=== PATIENT | female | born 1970 | race Caucasian/White ===

== ENCOUNTER → 2017-01-13 | Outpatient (REF) | payer OTHER ==
[2017-01-13 14:22] LABS: MEAN CORPUSCULAR HEMOGLOBIN 29.9 pg (27.0-33.0); MEAN CORPUSCULAR HGB CONC 33.6 g/dl (32.0-36.5); MEAN CORPUSCULAR VOLUME 88.9 fl (80.0-96.0); RED CELL DISTRIBUTION WIDTH 12.9 % (11.5-14.5); WHITE BLOOD COUNT 8.9 K/mm3 (4.0-10.0)
[2017-01-13 15:26] LABS: ALBUMIN 3.7 GM/DL (3.2-5.2); ALBUMIN/GLOBULIN RATIO 1.37 (1.00-1.93); ALKALINE PHOSPHATASE 99 U/L (45-117); ALT/SGPT 17 U/L (12-78); ANION GAP 6 MEQ/L (8-16); AST/SGOT 11 U/L (15-37); BILIRUBIN,TOTAL 0.3 MG/DL (0.2-1.0); BLOOD UREA NITROGEN 12 MG/DL (7-18); CARBON DIOXIDE LEVEL 28 MEQ/L (21-32); CHLORIDE LEVEL 106 MEQ/L (98-107); CHOLESTEROL LEVEL 191 MG/DL (<200); GLOMERULAR FILTRATION RATE > 60.0 (>58); GLUCOSE, FASTING 89 MG/DL (70-105); POTASSIUM SERUM 4.2 MEQ/L (3.5-5.1); SODIUM LEVEL 140 MEQ/L (136-145); TOTAL PROTEIN 6.4 GM/DL (6.4-8.2); TRIGLYCERIDES LEVEL 64 MG/DL (<150)
== END ==
LOC: M LABDRWAD 13:33
PROVIDERS: ATTEND Physician Assistant
DX: Z00.00 Encounter for general adult medical examination without abnormal findings (principal); Z13.220 Encounter for screening for lipoid disorders

== ENCOUNTER → 2017-03-09 | Outpatient (REF) | payer OTHER | LOC: M SFHCWAGY 09:20 | PROVIDERS: ATTEND Nurse Practitioner Women's Health | DX: Z12.4 Encounter for screening for malignant neoplasm of cervix (principal) ==

== ENCOUNTER → 2017-03-09 | Outpatient (CLI) | payer OTHER ==
--- NOTE | 2017-03-09 10:19 | REPMRS ---
Patient History The patient states she had a clinical breast exam in 03/16 Patient is postmenopausal. Family history of prostate cancer in father, breast cancer in maternal grandmother at age 50 or over, and endometrial cancer in maternal cousin under age 50. Benign stereotactic core biopsy of the right breast, May 31, 2010. Digital Woman Screen Mammo: March 09, 2017 - Exam #: [id number] Bilateral CC and MLO view(s) were taken. Technologist: Edith Barroso, Technologist Prior study comparison: May 12, 2010, bilateral digital mammo screening bilat, performed at [facility]. FINDINGS: The breast tissue is heterogeneously dense. This may lower the sensitivity of mammography. There has been no change in the appearance of the mammogram from the prior studies. There is a moderate amount of residual fibroglandular tissue which is fairly symmetric. There is no interval development of dominant mass, areas of architectural distortion, or clustered microcalcification typical of malignancy. ASSESSMENT: BI-RADS/ACR category 1 mammogram. Negative. Recommendation Routine screening mammogram in 1 year (for women over age 40). This mammogram was interpreted with the aid of an FDA-approved computer-aided dectection system. Electronically Signed By: Link Will MD 03/09/17 [id number]
== END ==
LOC: M WHC 09:01
PROVIDERS: ATTEND Physician Assistant
DX: Z12.31 Encounter for screening mammogram for malignant neoplasm of breast (principal)

== ENCOUNTER 2018-12-05 20:33 | Emergency (ER) | payer OTHER, SELFPAY ==
[~2018-12-05] VITALS: Ht 154.9 cm; Wt 50.9 kg
[2018-12-05] MEDS ORDERED: NS 1,000 ML IV ONE (21:15)
[2018-12-05] MEDS ORDERED: ONDANSETRON 4MG/2ML VIAL (J2405) IV ONE (21:15)
[2018-12-05 21:37] LABS: BASO % 0.3 % (0.0-1.0); HEMATOCRIT 41.5 % (36.0-47.0); HEMOGLOBIN 14.6 g/dl (12.0-15.5); LYMPH # 2.1 10^3/uL (1.5-4.5); LYMPH % 17.4 % (24.0-44.0); MEAN CORPUSCULAR HEMOGLOBIN 29.3 pg (27.0-33.0); MEAN CORPUSCULAR HGB CONC 35.2 g/dl (32.0-36.5); MEAN CORPUSCULAR VOLUME 83.3 fl (80.0-96.0); MONO % 8.1 % (0.0-5.0); NEUTROPHILS # 9.1 10^3/uL (1.8-7.7); PLATELET COUNT, AUTOMATED 272 10^3/uL (150-450); RED BLOOD COUNT 4.98 10^6/uL (4.00-5.40); WHITE BLOOD COUNT 12.3 10^3/uL (4.0-10.0)
[2018-12-05] MEDS ORDERED: ISOVUE-370 76% 100ML VIAL (Q9967) As Ordered ONE (21:45)
[2018-12-05 22:24] LABS: ALT/SGPT 19 U/L (12-78); BILIRUBIN,DIRECT 0.2 MG/DL (0.0-0.2); BILIRUBIN,TOTAL 0.9 MG/DL (0.2-1.0); CK-MB VALUE MASS < 1.0 NG/ML (<3.6); CPK CREATINE PHOSPHOKINASE 139 U/L (26-192); MB/CK RELATIVE INDEX 0.72 (< OR =4); TOTAL PROTEIN 6.9 GM/DL (6.4-8.2); TROPONIN I 0.03 NG/ML (< 0.10)
--- NOTE | 2018-12-05 22:43 | REPVR ---
EXAM: CT Chest With Contrast EXAM DATE/TIME: 12/05/2018 10:15 PM CLINICAL HISTORY: 48 years old, female; Abdominal pain; Generalized; Additional info: Pulsatile mass, R/O aneurysm TECHNIQUE: Imaging protocol: Axial computed tomography images of the chest with intravenous contrast. COMPARISON: No relevant prior studies available. FINDINGS: Thyroid: Normal thyroid. Lungs: Normal. No consolidation. No masses. Pleural space: There is no evidence of pneumothorax. There is no evidence of pleural effusion. Heart: The heart is normal in size. There is no evidence of pericardial effusion. Pulmonary arteries: There is opacification of the pulmonary arteries with no evidence of pulmonary embolus. Aorta: There is opacification of the aorta which appears normal in size. The ascending aorta appears intact. Lymph nodes: There is no evidence of mediastinal lymphadenopathy. Bones/joints: Unremarkable. No acute fracture. Soft tissues: Unremarkable. IMPRESSION: Normal size thoracic aorta and appearing intact with no aneurysm. EXAM: CT Angiography Abdomen and Pelvis With Contrast EXAM DATE/TIME: 12/05/2018 10:15 PM CLINICAL HISTORY: 48 years old, female; Abdominal pain; Generalized; Additional info: Pulsatile mass, R/O aneurysm TECHNIQUE: Imaging protocol: Axial computed tomographic angiography images of the abdomen and pelvis with intravenous contrast material. 3D rendering: MIP reconstructed images were created and reviewed. Radiation optimization: All CT scans at this facility use at least one of these dose optimization techniques: automated exposure control; mA and/or kV adjustment per patient size (includes targeted exams where dose is matched to clinical indication); or iterative reconstruction. Contrast material: ISOVUE 370; Contrast volume: 100 ml; Contrast route: IV; COMPARISON: No relevant prior studies available. FINDINGS: VASCULATURE: Aorta: The aorta is normal in size. There is opacification of the aorta with no evidence of aneurysm and no evidence of dissection. Celiac trunk and mesenteric arteries: There is opacification of the celiac artery and SMA. Renal arteries: There is opacification of the renal arteries. Normal sized iliac arteries with good opacification. An opacification of the femoral arteries as well. ABDOMEN: Liver: There is a small cyst left lobe of the liver. Gallbladder and bile ducts: Normal-appearing gallbladder. Pancreas: Normal pancreas. Spleen: Normal spleen. Adrenals: Normal appearing adrenals. Kidneys and ureters: There is opacification of the kidneys. There is no evidence of hydronephrosis. Stomach and bowel: The cecum is in the right pelvis. There is no evidence of inflammation in the region of the cecum. Some contrast within bowel. Appendix: Difficult to identify. PELVIS: Bladder: Normal appearing urinary bladder. Reproductive: Normal appearing uterus. ABDOMEN and PELVIS: Intraperitoneal space: There is no evidence of pneumoperitoneum. Bones/joints: No acute fracture. No dislocation. Soft tissues: Unremarkable. Lymph nodes: Unremarkable. No enlarged lymph nodes. Other findings: There is no evidence of obstruction. IMPRESSION: Normal-appearing aorta. Electronically signed by: Thomas Dunn On 12/05/2018 22:43:27 PM
--- NOTE | 2018-12-05 22:44 | REPVR ---
EXAM: CT Angiography Chest With Contrast EXAM DATE/TIME: 12/05/2018 10:15 PM CLINICAL HISTORY: 48 years old, female; Chest pain; Additional info: R/O tad TECHNIQUE: Imaging protocol: Axial computed tomographic angiography images of the chest with intravenous contrast using CT angiography protocol. Coronal and sagittal reformatted images were created and reviewed. 3D rendering: MIP reconstructed images were created and reviewed. Radiation optimization: All CT scans at this facility use at least one of these dose optimization techniques: automated exposure control; mA and/or kV adjustment per patient size (includes targeted exams where dose is matched to clinical indication); or iterative reconstruction. Contrast material: ISOVUE 370; Contrast volume: 100 ml; Contrast route: IV; COMPARISON: CR PORTABLE CHEST X-RAY 12/05/2018 9:19 PM FINDINGS: Pulmonary arteries: Normal. No pulmonary emboli. Aorta: Normal. No aortic aneurysm. No aortic dissection. Lungs: Normal. No consolidation. No masses. Pleural space: Normal. No pneumothorax. No pleural effusion. Heart: Normal. No cardiomegaly. No pericardial effusion. Lymph nodes: Unremarkable. No enlarged lymph nodes. Bones/joints: Unremarkable. No acute fracture. Soft tissues: Unremarkable. IMPRESSION: No acute findings. Electronically signed by: Thomas Dunn On 12/05/2018 22:44:04 PM
[2018-12-05 22:45] LABS: LIPASE 353 U/L (73-393)
[2018-12-05] MEDS ORDERED: POTASSIUM CHLORIDE 10 MEQ SR TABLET PO ONE (23:15)
[2018-12-05] MEDS ORDERED: ONDA4TAB6 PO (23:40)
[2018-12-05] MEDS ORDERED: ONDANSETRON 4 MG ORAL DISINTEGRATING TAB (Q0162 PER 1MG) As Ordered ONE (23:41)
[2018-12-05] MEDS ORDERED: ONDANSETRON 4 MG ORAL DISINTEGRATING TAB (Q0162 PER 1MG) PO ONE (23:45)
[2018-12-05 23:56] VITALS: BP 135/86
--- NOTE | 2018-12-06 01:49 | REP ---
Clinical: Acute chest pain . Comparison: None . Findings: The mediastinum and cardiac silhouette are stable and within normal limits for portable technique. The lung gorman are clear without acute consolidation, effusion, or pneumothorax. Skeletal structures are intact. Impression: No acute cardiopulmonary process appreciated. Electronically Signed by Davey Joseph MD 12/06/2018 01:41 A
--- NOTE | 2018-12-07 06:59 | ECGEPIP ---
Stationary ECG Study [facility] - ED Test Date: 2018-12-05 Pat Name: ALTON TAO Department: Room: - Gender: F Poiser Balance: POPEYE : 1970 Requested By: LESLY Abraham Order Number: [id number] Reading MD: Jean Norton Measurements Intervals [place] Rate: 62 P: 75 DE: 132 QRS: 82 QRSD: 86 T: 90 QT: 437 QTc: 446 Interpretive Statements SINUS RHYTHM NSTTW ABNORMALITIES NO PRIORS FOR COMPARISON Electronically Signed On 12-07-2018 6:59:09 EDT by Jean Norton
== END 2018-12-05 23:59 | disposition home or self-care (01) ==
LOC: M ED 20:33
DX: K52.9 Noninfective gastroenteritis and colitis, unspecified (principal); E87.6 Hypokalemia
CPT/HCPCS: 71045; 71275; 74174; 80047; 80076; 82550; 82553; 83690; 84484; 85025; 93005; 94760; 96374; 99284; J2405; Q9967